=== PATIENT | female | born 1960 | race Caucasian/White ===

== ENCOUNTER 2016-11-05 21:48 | Emergency (ER) | payer OTHER ==
[~2016-11-05 21:48] MED LIST: ALBUTEROL S3 ML/VIAL NEB; CELEXA20 MG PO; COLACE100 MG PO; CREON DR 24,001 EACH PO; HYDROCODON-ACE1 EAC4 PO; KLONOPIN0.5 MG PO; METOPROLOL TART50 MG PO; PHENERGAN25 M1 PO; PRILOSEC40 MG PO; REQUIP1 MG PO; SYMBICORT 16010.2 GM IH; SYNTHROID50 MCG PO; TEGRETOL200 MG PO; TESSALON PERLE100 MG PO
== END 2016-11-06 03:00 | disposition home or self-care (01) ==
LOC: ER 21:48
DX: G89.29 Other chronic pain (principal); R10.30 Lower abdominal pain, unspecified; F10.10 Alcohol abuse, uncomplicated; J44.9 Chronic obstructive pulmonary disease, unspecified; F43.10 Post-traumatic stress disorder, unspecified; F41.9 Anxiety disorder, unspecified; F17.210 Nicotine dependence, cigarettes, uncomplicated; Z90.49 Acquired absence of other specified parts of digestive tract; Z98.51 Tubal ligation status; Z79.899 Other long term (current) drug therapy; Z88.0 Allergy status to penicillin; Z88.5 Allergy status to narcotic agent
CPT/HCPCS: 36415; 96365; 96366; G0480